=== PATIENT | female | born 2000 | race Two or more races ===

== ENCOUNTER 2025-07-23 07:00 | Inpatient (IN) ==
[2025-07-23] MEDS ORDERED: FAMOTIDINE 20 MG/2 ML VIAL IVP PRN (10:51)
[2025-07-23] MEDS ORDERED: OXYTOCIN 10 UNIT/ML VIAL IM PRN (10:51)
[2025-07-23] MEDS ORDERED: METHYLERGONOVINE 0.2 MG/ML VIAL IM PRN (10:51)
[2025-07-23] MEDS ORDERED: TERBUTALINE 1 MG/ML VIAL SUBQ PRN (10:51)
[2025-07-23] MEDS ORDERED: CALCIUM CARBONATE CHEW 500 MG TABLET PO PRN (10:51)
[2025-07-23] MEDS ORDERED: OXYTOCIN/SODIUM CHLORIDE 500 ML IV PRN (10:51)
[2025-07-23] MEDS ORDERED: CARBOPROST TROMETHAMINE 250 MCG/ML VIAL IM PRN (10:51)
[2025-07-23] MEDS ORDERED: LABETALOL 20 MG/4 ML SYRINGE IVP PRN ×5 (10:51→23:47)
[2025-07-23] MEDS ORDERED: SODIUM CHLORIDE FLUSH 0.9% 10 ML SYRINGE IVP PRN (10:51)
[2025-07-23] MEDS ORDERED: hydrALAZINE INJ 20 MG/ML VIAL IVP PRN ×4 (10:51→23:47)
[2025-07-23] MEDS ORDERED: ONDANSETRON ODT 4 MG TABLET PO PRN (10:51)
[2025-07-23] MEDS ORDERED: OXYTOCIN/SODIUM CHLORIDE 500 ML IV SCH (11:00)
[2025-07-23] MEDS ORDERED: PROCHLORPERAZINE 10 MG/2 ML VIAL IVP PRN (11:00)
[2025-07-23 11:56] LABS: HCT - HEMATOCRIT 38.0 % (37.0-47.0); HGB - HEMOGLOBIN 12.8 g/dL (12.0-16.0); MEAN PLATELET VOLUME 13.0 fL (7.9-10.8); NRBC ABSOLUTE COUNT (AUTO) 0.00 x10^3/uL; NUCLEATED RED BLOOD CELLS AUTO 0.0 /100WBC; PLT - PLATELET COUNT 170 10^3/uL (130-450); RED CELL DISTRIBUTION WIDTH 13.8 % (12.0-15.0)
[2025-07-23] MEDS: LACTATED RINGERS 500 ML IV ONE (13:30)
[2025-07-23] MEDS: LACTATED RINGERS 1,000 ML IV PRN (13:40)
[2025-07-23] MEDS: fentaNYL 100 MCG/2 ML VIAL IVP PRN (13:41)
[2025-07-23] MEDS ORDERED: ROPIVACAINE 0.2% 200 MG/100 ML BAG EP ONE (14:04)
[2025-07-23] MEDS ORDERED: BUPIVACAINE 0.25% PF 10 ML VIAL ONE (14:04)
[2025-07-23] MEDS ORDERED: fentaNYL 100 MCG/2 ML VIAL ONE (14:04)
--- NOTE | 2025-07-23 15:01 | ANESTHESIA PROCEDURE NOTE ---
Pre-Anesthesia VS, & Labs Diagnosis Surgical Diagnosis:: Induction of labor Procedure Procedure: Labor epidural Vitals Vital Signs: Temp Pulse Resp BP Pulse Ox 36.8 C 93 16 118/77 97 07/23/25 12:00 07/23/25 12:00 07/23/25 12:00 07/23/25 12:00 07/23/25 12:00 NPO NPO: >8 hours Is Patient ?: Yes Lab Results Current Lab Results: Laboratory Tests 07/23/25 12:18: Blood Type Recheck A POSITIVE 07/23/25 11:40: WBC 11.2 H, RBC 4.17 L, Hgb 12.8, Hct 38.0, MCV 91.1, MCH 30.7, MCHC 33.7, RDW 13.8, Plt Count 170, MPV 13.0 H, Neut # (Auto) 8.7 H, Lymph # (Auto) 1.6, [place] # (Auto) 0.7, Eos # (Auto) 0.0, Baso # (Auto) 0.0, Absolute Nucleated RBC 0.00, Nucleated RBC % 0.0, Blood Type A POSITIVE, Antibody Screen NEGATIVE Lab results reviewed: Yes 07/23/25 11:40 Meds/Allgy Home Medications Ambulatory Orders Medication Instructions Recorded Confirmed blood sugar diagnostic (True 07/16/25 07/16/25 Metrix Glucose Test Strip) blood-glucose meter (True Metrix 07/16/25 07/16/25 Glucose Meter) doxylamine 10 mg-pyridoxine (vit 2 tab PO QDAY 5 07/16/25 B6) 10 mg tablet,delayed release metformin 1,000 mg tablet 1,000 mg PO BID 07/16/2502/02 vits no.126-ferrous fum tab PO 07/16/2507/16 28 mg iron-folic acid 800 mcg tablet (Classic ) metformin 1,000 mg tablet 1,000 mg PO BID #40 tabs 03/0507/17/25 Allergies Allergies Allergy/AdvReac Type Severity Reaction Status Date / Time No Known Drug Allergies Allergy Verified 07/16/25 14:40 PFSH Active Problems All Active Problems (Updated 07/23/25 @ 10:52 by Isabel Pena MD) Abdominal pain during in third trimester (Acute) Gestational diabetes mellitus (GDM) controlled on oral hypoglycemic drug, antepartum (Acute) Intrauterine (Acute) Pain of lower extremity (Acute) Family History Family History Mother Anemia Diabetes Father High blood pressure Diabetes Social History Social History Smoking Status: Never smoker Marital Status: Living Condition: With spouse/s.o. Physical Activity: Walking Do you feel safe in your home environment?: Yes History of physical, verbal, emotional, or financial abuse?: No ETOH Use: None Substance Use: denies use Exam Exam Vital Signs: Vital Signs x48h Temp Pulse Pulse Resp BP BP Pulse Ox 07/23/25 12:00 36.8 C 93 16 118/77 97 07/23/25 07:18 36.8 C 93 16 112/87
--- NOTE | 2025-07-23 15:03 | ANESTHESIA PROCEDURE NOTE ---
Pre-Anesthesia VS, & Labs Diagnosis Surgical Diagnosis:: Active labor Procedure Procedure: Labor epidural Vitals Vital Signs: Temp Pulse Resp BP Pulse Ox 36.8 C 93 16 118/77 97 07/23/25 12:00 07/23/25 12:00 07/23/25 12:00 07/23/25 12:00 07/23/25 12:00 Is Patient ?: Yes Lab Results Current Lab Results: Laboratory Tests 07/23/25 12:18: Blood Type Recheck A POSITIVE 07/23/25 11:40: WBC 11.2 H, RBC 4.17 L, Hgb 12.8, Hct 38.0, MCV 91.1, MCH 30.7, MCHC 33.7, RDW 13.8, Plt Count 170, MPV 13.0 H, Neut # (Auto) 8.7 H, Lymph # (Auto) 1.6, [place] # (Auto) 0.7, Eos # (Auto) 0.0, Baso # (Auto) 0.0, Absolute Nucleated RBC 0.00, Nucleated RBC % 0.0, Blood Type A POSITIVE, Antibody Screen NEGATIVE Lab results reviewed: Yes 07/23/25 11:40 Meds/Allgy Home Medications Ambulatory Orders Medication Instructions Recorded Confirmed blood sugar diagnostic (True 07/16/25 07/16/25 Metrix Glucose Test Strip) blood-glucose meter (True Metrix 07/16/25 07/16/25 Glucose Meter) doxylamine 10 mg-pyridoxine (vit 2 tab PO QDAY 5 07/16/25 B6) 10 mg tablet,delayed release metformin 1,000 mg tablet 1,000 mg PO BID 07/16/2502/02 vits no.126-ferrous fum tab PO 07/16/2507/16 28 mg iron-folic acid 800 mcg tablet (Classic ) metformin 1,000 mg tablet 1,000 mg PO BID #40 tabs 03/0507/17/25 Allergies Allergies Allergy/AdvReac Type Severity Reaction Status Date / Time No Known Drug Allergies Allergy Verified 07/16/25 14:40 PFSH Active Problems All Active Problems Abdominal pain during in third trimester (Acute) Gestational diabetes mellitus (GDM) controlled on oral hypoglycemic drug, antepartum (Acute) Intrauterine (Acute) Pain of lower extremity (Acute) Family History Family History Mother Anemia Diabetes Father High blood pressure Diabetes Social History Social History Smoking Status: Never smoker Marital Status: Living Condition: With spouse/s.o. Physical Activity: Walking Do you feel safe in your home environment?: Yes History of physical, verbal, emotional, or financial abuse?: No ETOH Use: None Substance Use: denies use Anesthesia Exam (Expanded) Exam General: Alert and Oriented x3 Dental: WNL Mouth Openin Fingerbreadth Neck Mobility: Normal Mallampati classification: II Thyromental Distance: 4-6 cm Respiratory: Lungs clear Cardiovascular: Regular rate Mental/Cognitive Status: Alert/Oriented X3 Cognitive Status: Within normal limits Exam Exam Vital Signs: Vital Signs x48h Temp Pulse Pulse Resp BP BP Pulse Ox 07/23/25 12:00 36.8 C 93 16 118/77 97 07/23/25 07:18 36.8 C 93 16 112/87 Constitutional normal general appearance Neck/C-Spine cervical full ROM noted Respiratory breath sounds equal bilaterally and normal respiratory effort Cardiovascular normal heart rate noted Back/Pelvis spine normal to inspection and lumbar spine ROM normal Extremities normal to inspection Plan Plan Anesthesia Type: Epidural Consent for Procedure(s) Verified and Reviewed: Yes Code Status: Attempt Resuscitation ASA Classification ASA classification: 2-Mild systemic disease Is this case an emergency?: Yes
[2025-07-23] MEDS ORDERED: NALOXONE 0.4 MG/ML VIAL IVP PRN ×2 (15:10→23:47)
[2025-07-23] MEDS ORDERED: NALBUPHINE 10 MG/ML AMP IVP PRN (15:10)
[2025-07-23] MEDS ORDERED: ONDANSETRON 4 MG/2 ML VIAL IVP PRN (15:10)
[2025-07-23] MEDS ORDERED: ePHEDrine 50 MG/ML VIAL IVP PRN (15:10)
[2025-07-23] MEDS ORDERED: METOCLOPRAMIDE 10 MG/2 ML VIAL IVP PRN (15:10)
[2025-07-23] MEDS ORDERED: KETOROLAC 30 MG/ML VIAL ONE (17:03)
[2025-07-23] MEDS: SODIUM CHLORIDE FLUSH 0.9% 10 ML SYRINGE IVP SCH (18:11)
--- NOTE | 2025-07-23 18:54 | HISTORY & PHYSICAL EXAMINATION ---
Admit History Visit Reason Visit Reason: Contractions : 1 Parity: 0 Care: positive [facility] Complications This : positive Gestational diabetes and Other (Late transfer of care from [place]) Smoking Status: Never smoker Mother's Labs Mother's Blood Type: positive A Mother's RH: positive Negative GBS: positive Group B Step Negative Other Maternal History Other Maternal History: Patient is a 24 yo at 38+0 wks, who presented to triage today with complaint of 2-3 hrs of worsening contractions and some light vaginal bleeding. She has been peggy all night, but they've been more intense in the last 2- 3 hrs. She denied leakage of fluid or decreased movement. has been complicated by GDMA2, on metformin 1000 mg bid. She transferred care from [place] in the third trimester and has had one visit in the clinic with Dr. Regalado. She had growth US performed 07/16 with EFW 3005 gm, STEPHEN 15, and baby in cephalic presentation. Initial cervical exam around 0745 was 4/70/-1. Rpt exam around 1030 was 5/80/-1, and she desired epidural for pain mgmt. She was admitted at that time. Specific Issues/Plans LMP:10/30/2024 JOSE MARIA by LMP: 08/06/2025 US:01/02, 9w1d Final JOSE MARIA: 08/06 by LMP c/w 9wk US Problems: GDM on metformin 1000mg BID - dx early at 16wk, started on metformin at 31wk; A1C 5.1% 04/09/2025 - Growth US 06/11 32%tile, f/u growth US ordered - continue weekly NSTs. - Scheduled for IOL 07/30 at 8AM Abnormal Pap 01/2025: ASCUS + HPV - rpt in one year RH Neg - received Rhogam at 28 wks Pre- Weight:138lb at 1st visit at 9wk BMI: Blood type: A negative Antibody Screen:positive (had Rhogam first trimester) CBC: H/H/PLT 39.2/13.0/213 RUB:immune VZV: HBsAg:negative HepC: negative RPR: non-reactive HIV:negative Flu:given 06/24/25 Covid: PAP:02/05/2025-ASCUS/HPV+ GC/CT:negative HSV:denies Genetic testing:Fragile X, Yariel-Sachs- negative; msAFP neg; NIPT neg Early Glucola: 168 (early A1C 5.1). FAS: incomplete anatomy survey on initial, anatomy cleared on follow up US (per notes, no formal anatomy reports received) Growth US 06/11: vertex, anterior fundal placenta, STEPHEN 16.6, EFW 32%tile, BPP 04/18 Growth US 07/18: cephalic, STEPHEN 15.1 cm, EFW 31% 3005 gm 50gm OGCT:n/a 3HR GTT: (early) 89, 225, 225, 176 TDAP:given 06/11/2025 Flu: 06/24/2025 Breast Pump: has one RSV: Antibody screen:05/20- negative CBC:H/H/PLT 35.6/12.0/168 RPR:non-reactive GBS: Neg 07/17/2025 Delivery plan:IOL 07/30 at 8AM MOD: PP BC: undecided HPI Current : Current EDU 08/06/25 Gestation 38 Weeks and 0 Days Para 0 Vital Signs Temperature 36.8 C 07/23/25 12:00 Pulse Rate 93 07/23/25 12:00 Respiratory Rate 16 07/23/25 12:00 Blood Pressure 118/77 07/23/25 12:00 O2 Saturation 97 07/23/25 12:00 Meds/Allgy Home Medications Ambulatory Orders Medication Instructions Recorded Confirmed blood sugar diagnostic (True 07/16/25 07/16/25 Metrix Glucose Test Strip) blood-glucose meter (True Metrix 07/16/25 07/16/25 Glucose Meter) vits no.126-ferrous fum 1 tab PO DAILY 07/23/25 28 mg iron-folic acid 800 mcg tablet (Classic ) metformin 1,000 mg tablet 1,000 mg PO BID #40 tabs 03/0507/23/25 Allergies Allergies Allergy/AdvReac Type Severity Reaction Status Date / Time No Known Drug Allergies Allergy Verified 07/16/25 14:40 PFSH Active Problems All Active Problems (Updated 07/23/25 @ 19:51 by Isabel Pena MD) 38 weeks gestation of (Acute) Abdominal pain during in third trimester (Acute) Gestational diabetes mellitus (GDM) controlled on oral hypoglycemic drug, antepartum (Acute) Intrauterine (Acute) Pain of lower extremity (Acute) Family History Family History Mother Anemia Diabetes Father High blood pressure Diabetes Social History Social History Smoking Status: Never smoker Marital Status: Living Condition: With spouse/s.o. Physical Activity: Walking Do you feel safe in your home environment?: Yes History of physical, verbal, emotional, or financial abuse?: No ETOH Use: None Substance Use: denies use POLST Patient has POLST: No POLST CPR Status: Attempt Resuscitation (CPR) Level of Medical Intervention: Full Treatment Review of Systems Status of ROS: 10 or more systems reviewed and unremarkable except as noted in history and below Physical Abdominal Exam Vital Signs: Temp Pulse Resp BP Pulse Ox 36.8 C 93 16 118/77 97 07/23/25 12:00 07/23/25 12:00 07/23/25 12:00 07/23/25 12:00 07/23/25 12:00 General: Awake and alert in mild distress secondary to ctx pain. Lungs: Normal respiratory effort Heart: Reg rate/rhythm Abd: Gravid, nontender Ext: Warm and well-perfused with no edema Contraction Frequency (min/apart): Q 2-4 min Contraction Intensity: positive Moderate to strong Monitoring Heart Rate Baseline: 145 Strip Review: positive Category I Presentation Presentation: positive Vertex (By exam) Vaginal Exam Membranes: positive Membranes intact Dilation (in cm): 5 Effacement (%): 80 Station: positive -1 Cervical Position: positive Anterior Speculum Exam Speculum Exam Performed: positive No Plan for Labor Plan For Labor I expect patient to be DC'd or transferred within 96 hours.: Yes Conclusion/Plan Problem List (1) Abdominal pain during in third trimester: Plan: 24 yo at 38 wks in active labor. notable for GDM A2 (on metformin). Recent EFW 31% at 3005 gm. - Admit to L&D for labor mgmt and delivery. - Counseled patient re: vaginal delivery, expectations, and risks. Below handout reviewed, and consent form reviewed and signed. - Pain mgmt: planning epidural after admission - GBS neg - Shoulder dystocia and hemorrhage risk low - Blood type A neg; check blood type and plan for Rhogam PP PRN - GDM - check POC glucose Q 2 hrs; low-carb diet in labor - Anticipate (2) Gestational diabetes mellitus (GDM) controlled on oral hypoglycemic drug, antepartum: (3) 38 weeks gestation of : Plan Consent for Vaginal Delivery Procedures I am being offered care for vaginal delivery, which may include internal monitoring, episiotomy, use of forceps or vacuum, and emergency section if needed. The following explains these procedures, their benefits, risksincluding specific risks for vacuum and forceps deliveryand alternatives.[1][2][3][4][5][6][7][8][9][10][11][12][13][14][15][16][17][18][19] [20][21][22][23] Vaginal Delivery: Vaginal is the most common way to deliver a baby. It usually has fewer risks and a faster recovery than . Risks include bleeding, infection, tears in the vagina or perineum, injury to the baby or mother, and rarely, the need for blood transfusion due to heavy bleeding ( hemorrhage). Severe tears (third- or fourth-degree) are more common with operative vaginal delivery.[1][2][3][8][9][10] Internal Monitoring: Special monitors may be placed inside the uterus or on the baby's scalp to check the baby's heart rate and contractions. Risks include infection, bleeding, and rarely, injury to the baby.[15][24][25] Episiotomy: An episiotomy is a small cut made in the perineum to help deliver the baby if needed. Risks include pain, bleeding, infection, longer healing time, and increased risk of blood loss.[8][26][27] Vacuum Delivery (Vacuum Extraction): Vacuum delivery uses a suction cup to help guide the baby out. - Risks to the mother: Increased risk of vaginal and perineal tears, hemorrhage, and need for blood transfusion. The risk of severe perineal trauma is lower than with forceps but higher than with spontaneous vaginal delivery.[16][18][19][20][21][22][23] - Risks to the baby: Higher risk of scalp injuries (such as cephalohematoma and caput succedaneum), scalp lacerations, and, rarely, subgaleal hemorrhage. injuries are more common than with spontaneous vaginal delivery but less frequent than with forceps for some types of trauma.[17][19][20][22][23] Forceps Delivery: Forceps delivery uses metal instruments to help guide the baby out. - Risks to the mother: Higher risk of severe perineal tears (third- and fourth- degree), vaginal and cervical lacerations, hemorrhage, and need for blood transfusion. Maternal trauma is more frequent than with vacuum delivery.[16][18][19][20][21][22] - Risks to the baby: Increased risk of facial injuries, scalp lacerations, and, rarely, nerve injury (such as facial nerve palsy) and skull fracture. trauma rates are similar to vacuum for some injuries but higher for others, such as facial injuries.[17][19][20][22] Emergency Section: A section () is surgery to deliver the baby through an incision in the abdomen. It may be needed if there are concerns for the baby's or mother's health during labor. Risks include infection, bleeding, blood clots, injury to organs, longer recovery, and a higher risk of needing a blood transfusion compared to vaginal delivery.[1][2][5][6][7][10][11][12] Blood Transfusion: A blood transfusion may be needed if there is significant blood loss during or after delivery. The risk is higher with operative vaginal delivery and section than with spontaneous vaginal delivery. Risks of transfusion include allergic reactions, fever, infection, and very rarey, serious complications.[1][2][3][5][6][7][8][10][11][12] Possible Additional Procedures for Heavy Bleeding - If heavy bleeding occurs, additional interventions may be needed, including medications (uterotonics, tranexamic acid), exam under anesthesia in the operating room, uterine curettage (if suspected retained tissue or placenta), intrauterine balloon or vacuum tamponade, and/or abdominal incision (laparotomy) to perform uterine compression sutures (B-Jackman), vessel ligation ([place] suture), or hysterectomy.[12][13][14][15][16][17][18] Alternatives: Alternatives depend on the situation. For most low-risk pregnancies, vaginal delivery is preferred. If complications arise, the care team will discuss options, including waiting, changing positions, or other interventions.[14][28] Your Rights: - You have the right to ask questions and discuss your preferences. - You may accept or refuse any procedure. - Your care team will support you in making informed decisions. Lab Results Lab results reviewed: Yes 07/23/25 11:40
--- NOTE | 2025-07-23 19:45 | PROVIDER PROGRESS NOTE ---
Labor Progress Note Labor Progress Note Labor Progress Note/Additional Text: S/ Patient has continued to contract spontaneously throughout the day today. She had epidural placed around 1400 and was 6/90/0 per RN just prior to epidural. At the time of her davalos catheter insertion thereafter, she was 8/100/0 with BBOW (at approx 1630). She is now resting comfortably. Epidural was noted to be very dense and was turned down by Anesthesia. She now reports R side is very numb. She is feeling some pressure to push, but intermittently. O/ AFEB VS stable and nml FHT 145 with mod variability, accels present, no decels - cat 1 Ctx spontaneous Q 2-3 min Cvx 9/c/+1, MAXIMINO position after amniotomy performed at 192 (clear fluid) A/P at 38+0 wks, admitted in labor. Progressing well with cat 1 FHT. - Amniotomy performed with clear fluid noted. - Anticipate start of second stage soon followed by .
[2025-07-23] MEDS: OXYTOCIN/SODIUM CHLORIDE 500 ML IV PRN (22:12)
[2025-07-23] MEDS: TRANEXAMIC ACID IN NACL 1,000 MG/100 ML BAG IV PRN (22:32)
[2025-07-23] MEDS ORDERED: LABETALOL 5 MG/1 ML 20 ML MDV IVP PRN (23:47)
[2025-07-23] MEDS ORDERED: SIMETHICONE CHEW 80 MG TABLET PO PRN (23:47)
[2025-07-23] MEDS ORDERED: ACETAMINOPHEN 500 MG TABLET PO PRN (23:47)
--- NOTE | 2025-07-24 00:24 | DELIVERY NOTE ---
OB Labor and Delivery Note Labor Labor: Spontaneous Delivery Method Delivery Method: Spontaneous vaginal delivery Presentation Presentation: Vertex and MAXIMINO - left occiput anterior (with compound hand) Nuchal Cord Nuchal Cord: None Amniotic Fluid Description Amniotic Fluid Description: Clear Episiotomy Type Episiotomy Type: None Laceration Laceration: 2nd degree and Labial (Right) Suture Suture Type: Vicryl Suture Size: 3-0 Delivery Outcome Delivery Date: 07/23/25 Delivery Time: 22:07 Delivery Outcome: Livebirth [place] : Placed in direct skin contact with mother, Suctioned, Stimulated and Warmed [place] sex: Female Cord Cord: 3 vessels Placenta Placenta: Intact and Expressed Estimated Blood Loss Estimated Blood Loss (in cc): 519 Delivery Comments (Free Text/Narrative) Delivery Comments (Free Text/Narrative): Celsa was admitted in labor and progressed spontaneously. She had an epidural placed at 6 cm dilation, and amniotomy was performed when 8 cm dilated. She progressed to c/c/+2 and started pushing. After about 1 hr of pushing, she delivered the head to the perineum in MAXIMINO position. A compound hand was noted (left swept across the chest), and no nuchal cord was present. Shoulders delivered easily with gentle traction, followed by the corpus. occurred at 2206. Umbilical cord was short, so the baby was initially warmed and dried at the perineum then the lower maternal abdomen. After 1.5 min, the cord was clamped and cut, and the infant moved to the maternal chest. Mouth and nose were suction to remove secretions. The placenta delivered with expression, and trailing membranes were noted. With slow delivery of the membranes, the entire placed delivered by 2217. Uterus firmed with massage, and Pitocin was started as placenta was delivering. A midline 2' laceration was noted and consisted of a defect in the vaginal mucosa and submucosa proximal to the perineal skin. There was no defect extending the perineal skin. The deep tissue layers were closed with running, non-locked 3-0 vicryl. The mucosa was then closed with locking 3-0 vicryl from the apex to the hymenal ring. There, the direction of the suture was changed to perpendicular, and the submucosal tissue was closed to the perineal apex. The skin was then closed with a subcuticular stitch and tied just above the hymenal ring. The laceration was moderately bleeding during the repair, contributing to the patient's final QBL of 519 ml. TXA was ordered and given to help with bleeding at the laceration site. It appeared hemostatic after closure and pressure application. A right labial laceration was hemostatic and did not require repair. apgars were 8, 5, 7, and 9, and the baby weight 3020 gm. She required CPAP and was subsequently transferred to the nursery for respiratory distress. She was later transferred to [facility] with presumed pneumonia vs aspiration (see Peds notes). Mom doing well and anticipate routine care. Discussed possible early maternal discharge (at or after 8 hrs ) in order to join the baby in [place].
[2025-07-24] MEDS: IBUPROFEN 600 MG TABLET PO PRN (01:17)
[2025-07-24] MEDS: ACETAMINOPHEN 500 MG TABLET PO PRN (01:17)
[2025-07-24 06:04] LABS: HCT - HEMATOCRIT 32.0 % (37.0-47.0); HGB - HEMOGLOBIN 10.7 g/dL (12.0-16.0); MEAN PLATELET VOLUME 12.8 fL (7.9-10.8); PLT - PLATELET COUNT 149.0 10^3/uL (130-450); RED CELL DISTRIBUTION WIDTH 13.9 % (12.0-15.0)
[2025-07-24 06:09] LABS: RPR Non Reactive (Non Reactive)
[2025-07-24] MEDS: DOCUSATE SODIUM 100 MG CAPSULE PO SCH (09:25)
[2025-07-24 12:14] VITALS: BP 123/78; TEMP 98.2; O2SAT 98
--- NOTE | 2025-07-24 13:16 | Labor Flowsheet ---
Labor Flowsheet Datetime Report Generated by CPN: 07/24/2025 13:16 Datetime: 07/24/2025 12:02 VITAL SIGNS NBP Sys/Tatiana/Mean (mmHg): 123 : 78 : 89 Pulse: 132 LaborFlag: Labor Datetime: 07/24/2025 00:14 SpO2 (%): 98 Datetime: 07/23/2025 22:32 Medication Comments: TXA started Datetime: 07/23/2025 22:20 Membranes Ruptured Date/Time: 07/23/2025 19:21 Datetime: 07/23/2025 22:12 MEDICATIONS Pitocin (milliunits): Started @ Datetime: 07/23/2025 22:00 UTERINE ACTIVITY Monitor Mode: External Frequency (min): 2-5 Quality: Strong Duration (sec): pushing Pattern: Normal: <= 5 Contractions in 10 Minutes Resting Tone (Palpate): Relaxed ASSESSMENT A Monitor Mode: Telemetry FHR Baseline Rate : 165 Variability: Moderate 6-25 bpm Datetime: 07/23/2025 21:51 STAGE 2 Pushing: Coached on Pushing; Urge to Push Pushing Position: Pushing with Contractions Pushing Progress: Descent with Pushing; with Pushing; Pushing Effectively with Contractions Datetime: 07/23/2025 21:42 COMMUNICATION Communication: Provider at Bedside Datetime: 07/23/2025 20:39 Patient Position/Activity: Right Lateral; Right Tilt Datetime: 07/23/2025 20:36 VAGINAL EXAM Dilatation (cm): 10.0 Exam by: Dr. Jean Datetime: 07/23/2025 20:30 Accelerations: 15X15 Decelerations: None Category: Category I Datetime: 07/23/2025 20:12 Patient Care Comments: Pt states her left side is not as numb Datetime: 07/23/2025 20:11 Pain Presence: Intermittent Pain Type: Contraction Pain Location: Left Leg Pain Coping: Talking Through Contractions Datetime: 07/23/2025 19:27 Provider Reviewed Strip: Yes Datetime: 07/23/2025 19:21 Membranes Rupture Method: Artificial Amniotic Fluid Color: Clear Amniotic Fluid Amount: Moderate Amniotic Fluid Odor: None Datetime: 07/23/2025 19:19 Labor/Induction: Artificial Rupture of Membranes Datetime: 07/23/2025 19:17 Notification Reason: Status Update; Status; Labor Status; Membrane Status; Uterine Activity; Pain Datetime: 07/23/2025 19:11 Temperature (C): 36.8 Pain Relief Measures: Epidural Given; COMMUNICATION INSTRUCTOR Use Membrane Status: Intact MATERNAL ASSESSMENT Level of Consciousness: Alert Headache: Denies Breath Sounds, Left: Clear and Equal Breath Sounds, Right: Clear and Equal Nausea/Vomiting: Denies RUQ Epigastric Pain: Denies ANESTHESIA Anesthesia Plans: Epidural TEACHING Instructional Method: Verbal Plan of Care: Plan of Care Discussed Pain Management: Epidural Datetime: 07/23/2025 18:30 Stage of : Labor FHR Baseline Changes: No Baseline Change Datetime: 07/23/2025 17:00 Temperature Route: Oral Datetime: 07/23/2025 16:45 Effacement (%): 100 Station: 0 Datetime: 07/23/2025 16:30 Oxygen Method: Room Air Anesthesia Level Check: T10- Umbilicus Datetime: 07/23/2025 14:50 Pain Assessment Comments: comfortable with epidural PATIENT CARE IV/Blood Work: IV Infusing per Order Epidural Procedure: Completed Epidural Procedure Other: Pump Started Datetime: 07/23/2025 14:11 PROCEDURE TIME OUT Procedure Verify: Correct Patient Identity; Correct Side and Site are Marked; Accurate Procedure Consent Form; Agreement on Procedure to be Done; Correct Patient Position Epidural Positioning: Sitting Datetime: 07/23/2025 13:40 Analgesics/Sedatives: Fentanyl (mcg) @ 50 Datetime: 07/23/2025 13:30 Vaginal Bleeding: Normal Show Cervix, Consistency: Soft Cervix, Position: Midposition Datetime: 07/23/2025 12:43 PAIN Pain Scale: 8 Datetime: 07/23/2025 12:00 MONTEVIDEO UNITS (Computed) Contractions in Ten Minutes: 3
--- NOTE | 2025-07-25 14:43 | Discharge Summary ---
"Discharge Summary Admit Date: 07/23/25 Discharge Date: 07/24/25 Discharging Provider: Dr. Isabel Pena Primary Care Provider: Dr. Arin Regalado Code Status: Attempt Resuscitation Discharge Facility Name: [facility] DIAGNOSES Admission Diagnoses: Abdominal pain in (labor), third trimester; Gestational diabetes on Metformin, third trimester; at 38 weeks gestation Discharge Diagnoses with Status of Each Condition: Same now s/p vaginal delivery HPI History of Present Illness: Patient is a 24 yo at 38+0 wks, who presented to triage today with complaint of 2-3 hrs of worsening contractions and some light vaginal bleeding. She has been peggy all night, but they've been more intense in the last 2- 3 hrs. She denied leakage of fluid or decreased movement. has been complicated by GDMA2, on metformin 1000 mg bid. She transferred care from [place] in the third trimester and has had one visit in the clinic with Dr. Regalado. She had growth US performed 07/16 with EFW 3005 gm, STEPHEN 15, and baby in cephalic presentation. Initial cervical exam around 0745 was 4/70/-1. Rpt exam around 1030 was 5/80/-1, and she desired epidural for pain mgmt. She was admitted at that time. Specific Issues/Plans LMP:10/30/2024 JOSE MARIA by LMP: 08/06/2025 US:01/02, 9w1d Final JOSE MARIA: 08/06 by LMP c/w 9wk US Problems: GDM on metformin 1000mg BID - dx early at 16wk, started on metformin at 31wk; A1C 5.1% 04/09/2025 - Growth US 06/11 32%tile, f/u growth US ordered - continue weekly NSTs. - Scheduled for IOL 07/30 at 8AM Abnormal Pap 01/2025: ASCUS + HPV - rpt in one year RH Neg - received Rhogam at 28 wks Pre- Weight:138lb at 1st visit at 9wk BMI: Blood type: A negative Antibody Screen:positive (had Rhogam first trimester) CBC: H/H/PLT 39.2/13.0/213 RUB:immune VZV: HBsAg:negative HepC: negative RPR: non-reactive HIV:negative Flu:given 10/14/25 Covid: PAP:02/05/2025-ASCUS/HPV+ GC/CT:negative HSV:denies Genetic testing:Fragile X, Yariel-Sachs- negative; msAFP neg; NIPT neg Early Glucola: 168 (early A1C 5.1). FAS: incomplete anatomy survey on initial, anatomy cleared on follow up US (per notes, no formal anatomy reports received) Growth US 06/11: vertex, anterior fundal placenta, STEPHEN 16.6, EFW 32%tile, BPP 04/18 Growth US 07/18: cephalic, STEPHEN 15.1 cm, EFW 31% 3005 gm 50gm OGCT:n/a 3HR GTT: (early) 89, 225, 225, 176 TDAP:given 06/11/2025 Flu: 06/24/2025 Breast Pump: has one RSV: Antibody screen:05/20- negative CBC:H/H/PLT 35.6/12.0/168 RPR:non-reactive GBS: Neg 07/17/2025 Delivery plan:IOL 07/30 at 8AM MOD: PP BC: undecided CONSULTS | PROCEDURES Consultations: None Procedures: Vaginal delivery with repair of 2' laceration; epidural anesthesia HOSPITAL COURSE Hospital Course: Patient was admitted in labor and received an epidural for pain management. Admission labs were notable for blood type A pos, and previous blood type was recorded at A neg a prior clinic. She even received Rhogam at 28 wks. Repeat testing by the lab, including genetic testing verified blood type A pos. Labor progressed spontaneously. Once she was 8 cm, amniotomy performed, and she quickly progressed to c/c/+2. Vaginal delivery was uncomplicated. However, the developed respiratory distress (excessive secretions, possible aspiration and/or TTN) and was transferred after the delivery. , the patient did well. She was discharged home on PPD #1 (< 24 hrs) to be with the baby at the NICU. She was instructed on breast pumping and storage. VS were stable and normal her hospital stay. On day of discharge, she was ambulating, voiding, and controlling pain with oral medications. She reported some pressure at her rectal/perineal area. Perineal exam was performed prior to discharge, and laceration/repair appeared to be healing well with no hematoma or swelling. Vaginal exam not performed, however. Lochia was decreasing. - Discharge instructions, precautions, and limitations reviewed - Meds: Motrin, Tylenol, docusate, and PNV (reordered) - For GDM, discontinue glucose monitoring and metformin; OK to resume normal diet; plan for GTT at 6 wks PP - PP contraception undecided - F/u 2 wks for depression screen and/or to see how baby is doing and if any support needed; then f/u at 6 wks for PP visit ALLERGIES Allergies Allergy/AdvReac Type Severity Reaction Status Date / Time No Known Drug Allergies Allergy Verified 07/16/25 14:40 MEDICATIONS Ambulatory Orders Medication Instructions Recorded Confirmed blood sugar diagnostic (True 07/16/25 07/16/25 Metrix Glucose Test Strip) Held on 07/24/25. Instructions: Resume on 09/11/25. Hold until after 6 wk diabetes screen blood-glucose meter (True Metrix 07/16/25 07/16/25 Glucose Meter) Held on 07/24/25. Instructions: Resume on 09/11/25. Hold until after 6 wk diabetes screen metformin 1,000 mg tablet 1,000 mg PO BID #40 tabs 03/0507/23/25 Held on 07/24/25. Instructions: Resume on 09/11/25. Hold med until after 6 wk repeat diabetes screen. May recommend restarting after that depending on results. acetaminophen 500 mg tablet 1,000 mg (2 x 500 mg) PO Q 8H PRN 07/24/25 (Tylenol Extra Strength) Mild Pain Or Fever>38c(100.4 f) #30 tabs docusate sodium 100 mg capsule 100 mg PO BID #30 caps 07/24/25 ibuprofen 600 mg tablet 600 mg PO Q6HR PRN Moderate Pain 07/24/25 (Level 4-6) #30 tabs vits no.28-ferrous 1 tab PO DAILY #90 tabs fumarate 27 mg iron-folic acid 1 mg tablet PHYSICAL EXAM AT DISCHARGE Vital Signs: Reviewed and normal General Appearance: positive No acute distress and Alert Respiratory: positive No respiratory distress and Breath sounds nml Cardiovascular: positive Regular rate & rhythm Abdomen: positive Non-tender and Other (Uterus firm at U-1) Skin: positive Color nml Extremities: positive Non-tender Neurologic/Psychiatric: positive Oriented x3 and Mood/affect nml Physical Exam Other/Comments: Perineal exam: 2' laceration site well-approximated with no swelling or tenderness present; did not perform intravaginal exam LABS 07/24/25 05:48 QUALITY (Female Hip Fx Only) Was patient sent home on osteoporosis medication?: No FOLLOW UP Follow Up: 2 wks for visit TIME SPENT Time Spent in Discharge (Minutes): 25 Discharge Plan Discharge Patient Disposition: Home, Self Care Condition: Good Medically Cleared Date:: 07/24/25 Prescriptions: New vit 28-iron fum-folic 27 mg iron- 1 mg tablet 1 tab PO DAILY Qty: 90 3RF acetaminophen [Tylenol Extra Strength] 500 mg Tablet 1,000 mg PO Q8H PRN (Reason: Mild Pain Or Fever>38c(100.4f)) Qty: 30 0RF Rx Instructions: OK to substitute with similar medication docusate sodium 100 mg Capsule 100 mg PO BID Qty: 30 0RF ibuprofen 600 mg Tablet 600 mg PO Q6HR PRN (Reason: Moderate Pain (Level 4-6)) Qty: 30 0RF Held (DME) blood-glucose meter [True Metrix Glucose Meter] Misc See Rx Instructions .ROUTE Hold Instructions: Resume on 09/11/25. Hold until after 6 wk diabetes screen Rx Instructions: As directed (DME) True Metrix Glucose Test Strip Strip See Rx Instructions .ROUTE Hold Instructions: Resume on 09/11/25. Hold until after 6 wk diabetes screen Rx Instructions: As directed metformin 1,000 mg tablet 1,000 mg PO BID Qty: 40 0RF Hold Instructions: Resume on 09/11/25. Hold med until after 6 wk repeat diabetes screen. May recommend restarting after that depending on results. Discontinued Classic 28 mg iron- 800 mcg tablet 1 tab PO DAILY Activity Restrictions/Additional Instructions: - pelvic rest for 6 wks - no heavy lifting or strenuous exercise for 6 wks Diet: Regular Print Language: Mongolian Patient Instructions: After a Vaginal , Breastfeed Nb NICU, Gestational Diabetes Post Preg Follow-up Care: Da Regalado MD [Provider Admit Priv/Credential, Obstetrics/Gynecology] Referral Note: F/u as previously scheduled on 07/30, then schedule 6 wk PP visit Vitals documented within 30 minutes of discharge?: Yes"
== END 2025-07-24 12:10 | disposition home or self-care (01) | DRG 807 ==
LOC: WFO 07:00 → FBP 07:03
PROVIDERS: ADMIT Obstetrics & Gynecology; ATTEND Obstetrics & Gynecology
DX: O69.3XX0 Labor and delivery complicated by short cord, not applicable or unspecified; O70.1 Second degree perineal laceration during delivery; Z37.0 Single live birth; Z3A.38 38 weeks gestation of pregnancy; O32.6XX0 Maternal care for compound presentation, not applicable or unspecified; O24.425 Gestational diabetes mellitus in childbirth, controlled by oral hypoglycemic drugs